=== PATIENT | female | born 1950 | race Caucasian/White ===

== ENCOUNTER → 2018-01-01 | Outpatient (CLI) | payer MEDICARE, OTHER ==
--- NOTE | 2018-01-03 09:53 | RADIOLOGY IMAGING REPORT ---
FACILITY: [facility] PATIENT NAME: EUFEMIA ORANTES : [id number] MR: [id number] V: [id number] EXAM DATE: [id number] ORDERING PHYSICIAN: DARRYL VELASCO TECHNOLOGIST: Cecille Harris PROCEDURE:BILATERAL DIGITAL SCREENING MAMMOGRAM WITH CAD ASSISTED INTERPRETATION AND 3D BREAST TOMOSYNTHESIS. COMPARISON:Prior mammograms dated 12/19/16, 09/09/15, 09/08/14 and 09/07/13. INDICATIONS:SCREENING. FINDINGS: Small to moderate amount of fibroglandular tissue is seen throughout the breasts. The parenchymal pattern has remained stable when allowing for difference in mammographic technique and patient positioning. There is no evidence of malignant appearing mass, malignant appearing calcification or other secondary sign of malignancy in either breast. DIAGNOSTIC CATEGORY 2--BENIGN FINDING. RECOMMENDATIONS: ROUTINE MAMMOGRAM AND CLINICAL EVALUATION. IMPRESSION: Bi-RADS 1: No significant abnormality is seen. Images were reviewed with R2CAD and 3D breast tomosynthesis. Dictated by: Liliana Payne M.D. on 01/01/2018 at 15:53 Transcribed by: POLLY on 01/02/2018 at 19:05 Approved by: Liliana Payne M.D. on 01/03/2018 at 9:52 [facility]
== END ==
LOC: MAMO 02:35
PROVIDERS: ATTEND Physician Assistant
DX: Z12.31 Encounter for screening mammogram for malignant neoplasm of breast (principal)
CPT/HCPCS: 77063; 77067

== ENCOUNTER → 2019-03-09 | Outpatient (CLI) | payer MEDICARE, OTHER ==
[~2019-03-09] MED LIST: ASPI-1471 PO; BIOT1TAB2 PO; ECHI80CA2 PO; MULT1TAB64 PO; MV-M1TAB38 PO; PNEU0.5D3 IM; TRIA15CR40 TP; VARI50KI IM
--- NOTE | 2019-03-09 17:14 | RADIOLOGY IMAGING REPORT ---
FACILITY: [facility] PATIENT NAME: Ann Saba : 1950 MR: [id number] V: [id number] EXAM DATE: ORDERING PHYSICIAN: HALEIGH DIAZ TECHNOLOGIST: Location: [facility] Patient: Ann Saba : 1950 Visit/Account:[id number] Date of Sevice: 03/09/2019 DEXA Scan Clinical history: Postmenopausal. Comparison: None available. LUMBAR SPINE: The bone mineral density (BMD) measured from L1-L4 correlates with a Z-score 0.9 and a T-score of -0. 6 which is Normal as defined by the World Health Organization. The corresponding risk of fracture in the lumbar spine is 1-2 times increased compared with a young adult reference population. HIP: Bone mineral density (BMD) measured in the Left total hip region correlates with a Z-score 0.8 and a T-score of by 0.5 which is Normal as defined by the World Health Organization. The corresponding ris k of fracture in the hip is 1-2 times increased compared with a young adult reference population. T score left femoral neck -1 Bone mineral density (BMD) measured in the Femoral Neck region measures 0.898 g/cm2. Impression: 1. Lumbar spine: Normal. 2. Left Hip: Normal. 3. Femoral Neck: Bone Mineral Density is 0.898 g/cm2 The next DEXA scan of this patient should include the following sites: L1-L4 and the left hip. FRAX? WHO Fracture Risk Assessment Tool link: <http://www.shef.ac.uk/FRAX/tool.jsp?locationValue=9> PLEASE NOTE: 1) The World Health Organization defines low BMD as follows: T-score Normal > -1 Osteopenia < -1 and > -2.5 Osteoporosis < -2.5 without fractures Established osteoporosis < -2.5 with fractures 2) In general, you may wish to consider: Diagnosis Treatment Follow-up DEXA Normal BMD Prevention 2-3 years Osteopenia Prevention/therapy 1-2 years Osteoporosis Therapy Yearly 3) Fracture risk estimated from the T-score is more accurate for vertebral fractures (often spontane ous) than for hip fractures. Report Dictated By: Liliana Payne MD at 03/09/2019 5:08 PM Report E-Signed By: Liliana Payne MD at 03/09/2019 5:09 PM MICHELEN:BETY
--- NOTE | 2019-03-10 14:20 | RADIOLOGY IMAGING REPORT ---
FACILITY: [facility] PATIENT NAME: EUFEMIA ORANTES : [id number] MR: [id number] V: [id number] EXAM DATE: [id number] ORDERING PHYSICIAN: HALEIGH DIAZ TECHNOLOGIST: Cecille Harris PROCEDURE:BILATERAL DIGITAL SCREENING MAMMOGRAM WITH CAD ASSISTED INTERPRETATION & 3D TOMOSYNTHESIS COMPARISON:Prior mammograms 01/01/18, 12/19/16, 09/09/15, 09/08/14, 09/07/13. INDICATIONS:screening FINDINGS: There are scattered areas of fibroglandular density throughout the breasts. The parenchymal pattern has remained stable allowing for difference in mammographic technique & patient positioning. DIAGNOSTIC CATEGORY 1--NEGATIVE. RECOMMENDATIONS: ROUTINE MAMMOGRAM AND CLINICAL EVALUATION. IMPRESSION: BIRADS 1: Negative. No significant abnormality is seen. Dictated by: Liliana Payne M.D. on 03/09/2019 at 15:49 Transcribed by: CAILIN on 03/10/2019 at 8:52 Approved by: Liliana Payne M.D. on 03/10/2019 at 14:18 [facility]
== END ==
LOC: MAMO 02-10 01:51
PROVIDERS: ATTEND Nurse Practitioner Family
DX: Z13.820 Encounter for screening for osteoporosis (principal); Z12.31 Encounter for screening mammogram for malignant neoplasm of breast; R94.6 Abnormal results of thyroid function studies; Z78.0 Asymptomatic menopausal state; Z80.3 Family history of malignant neoplasm of breast
CPT/HCPCS: 36415; 77063; 77067; 77080; 84439; 84443; 84480

== ENCOUNTER 2019-07-14 08:29 | Emergency (ER) | payer MEDICARE, OTHER ==
--- NOTE | 2019-07-14 08:30 | ER Report ---
History and Physical Time Seen By MD: 08:26 HPI/ROS CHIEF COMPLAINT: Dizziness, near syncope HISTORY OF PRESENT ILLNESS: Patient is a 69-year-old female here with complaints of dizziness, near syncope which started shortly prior to arrival while the patient was watching her grandson. Denies prior episodes of similar symptoms. Denies headache, blurry vision, chest pain, shortness breath or palpitations. Denies recent illness. Denies trauma. Patient is healthy at baseline. Patient presents with positional vertigo, she is afebrile, hemodynamically stable at time of evaluation. REVIEW OF SYSTEMS: Constitutional: No fever, no chills. Eyes: No discharge. ENT: No sore throat. Cardiovascular: No chest pain, no palpitations. Respiratory: No cough, no shortness of breath. Gastrointestinal: No abdominal pain, no vomiting. Genitourinary: No hematuria. Musculoskeletal: No back pain. Skin: No rashes. Neurological: No headache. + Dizziness Allergies: Coded Allergies: Penicillins (Unverified Allergy, Unknown, 07/14/19) sulfamethoxazole (Unverified Allergy, Unknown, 07/14/19) trimethoprim (Unverified Allergy, Unknown, 07/14/19) Home Meds Active Scripts Meclizine Hcl (MECLIZINE HCL) 25 Mg Tablet, 25 MG PO BID PRN for DIZZINESS, #20 TAB Prov:LYNDA THOMAS DO 07/14/19 Reported Medications Aspirin (ASPIR 81) 81 Mg Tablet.dr, 1 TAB PO QDAY, TAB 12/31/18 Discontinued Reported Medications Echinacea Purpurea Root (ECHINACEA) Unknown Strength Capsule, PO, CAPSULE 12/31/18 Multivitamin (MULTI VITAMIN DAILY) 1 Each Tablet, 1 TAB PO QDAY 12/31/18 Biotin/Keratin (Biotin Plus Keratin Tablet) 1 Each Tablet, 1 TAB PO QDAY 12/31/18 Mv-Mn/FA/Vit K/Lycop/Lut/Zeaxa (Ocuvite Eye + Multi Tablet) 1 Each Tablet, 1 TAB PO QDAY 12/31/18 Discontinued Scripts Varicella-Zoster Ge/As01b/Pf (Shingrix Vial Kit) 50 Mcg/0.5 Ml Kit, 0.5 ML IM ONCE, #1 EACH 1 Refill Prov:HALEIGH DIAZ APRN [employer] SERVICE PROFESSIONAL-[employer] 01/08/19 Triamcinolone Acetonide 0.1% Cr 15 Gm Tube (TRIAMCINOLONE ACETONIDE 0.1% CREAM) 15 Gm Cream..g., 1 NAMRATA TP BID for 30 Days, #30 TUBE 1 Refill Prov:HALEIGH DIAZ APRN [employer] SERVICE PROFESSIONAL-[employer] 01/08/19 Smoking Status: Never Smoker Constitutional Vital Sign - Last 24 Hours 07/14/19 08:33 Temp 98.3 Pulse 73 Resp 20 B/P (MAP) 157/102 O2 Delivery Room Air Physical Exam General Appearance: The patient is alert, has no immediate need for airway protection and no signs of toxicity. No acute distress Eyes: Pupils equal and round no pallor or injection. + Horizontal fatigable nystagmus ENT, Mouth: Mucous membranes are moist. Respiratory: There are no retractions, lungs are clear to auscultation. Cardiovascular: Regular rate and rhythm. [ ] Gastrointestinal: Abdomen is soft and non tender, no masses, bowel sounds normal. Neurological: No focal neurological deficits on examination Skin: Warm and dry, no rashes. Musculoskeletal: Neck is supple non tender. Extremities are nontender, nonswollen and have full range of motion. DIFFERENTIAL DIAGNOSIS: After history and physical exam differential diagnosis was considered for dizziness including but not limited to peripheral and central causes of vertigo, orthostatic causes including dehydration, and blood loss. Medical Decision Making Data Points Result Diagram: 07/14/19 0836 07/14/19 0836 Laboratory Hematology Test 07/14/19 08:36 White Blood Count 5.4 k/uL (4.5-11.0) Red Blood Count 4.67 M/uL (4.17-5.56) Hemoglobin 14.8 g/dL (12.0-16.0) Hematocrit 43.4 % (34.0-47.0) Mean Corpuscular Volume 92.9 fL (80.0-96.0) Mean Corpuscular Hemoglobin 31.6 pg (26.0-33.0) Mean Corpuscular Hemoglobin Concent 34.0 g/dL (32.0-36.0) Red Cell Distribution Width 12.6 % (11.5-14.5) Platelet Count 322 K/uL (150-450) Mean Platelet Volume 7.4 fL (7.2-11.1) Neutrophils (%) (Auto) 36.8 % (39.4-72.5) L Lymphocytes (%) (Auto) 42.7 % (17.6-49.6) Monocytes (%) (Auto) 13.4 % (4.1-12.4) H Eosinophils (%) (Auto) 5.6 % (0.4-6.7) Basophils (%) (Auto) 1.5 % (0.3-1.4) H Nucleated RBC Relative Count (auto) 0.0 /100WBC Neutrophils # (Auto) 2.0 K/uL (2.0-7.4) Lymphocytes # (Auto) 2.3 K/uL (1.3-3.6) Monocytes # (Auto) 0.7 K/uL (0.3-1.0) Eosinophils # (Auto) 0.3 K/uL (0.0-0.5) Basophils # (Auto) 0.1 K/uL (0.0-0.1) Nucleated RBC Absolute Count (auto) 0.00 K/uL Chemistry Test 07/14/19 08:36 Sodium Level 139 mmol/L (137-145) Potassium Level 3.4 mmol/L (3.5-5.0) Chloride Level 100 mmol/L (98-107) Carbon Dioxide Level 28 mmol/L (22-31) Blood Urea Nitrogen 20 mg/dl (7-18) Creatinine 0.80 mg/dl (0.52-1.04) Glomerular Filtration Rate Calc > 60.0 Random Glucose 99 mg/dl (75-110) Calcium Level 9.2 mg/dl (8.4-10.2) Total Bilirubin 0.6 mg/dl (0.2-1.3) Aspartate Amino Transf (AST/SGOT) 28 U/L (0-35) Alanine Aminotransferase (ALT/SGPT) 43 U/L (0-56) Alkaline Phosphatase 129 U/L (0-126) Total Protein 8.5 g/dl (6.3-8.2) Albumin 4.5 g/dl (3.5-5.0) Urinalysis Test 07/14/19 08:29 Urine Color Yellow Urine Clarity Clear Urine pH 6.0 pH (4.8-9.5) Urine Specific [place] 1.013 Urine Protein Negative mg/dL (NEGATIVE) Urine Glucose (UA) Negative mg/dL (NEGATIVE) Urine Ketones Negative mg/dL (NEGATIVE) Urine Blood Negative (NEGATIVE) Urine Nitrite Negative (NEGATIVE) Urine Bilirubin Negative (NEGATIVE) Urine Urobilinogen Negative mg/dL (0.2-1.9) Urine Leukocyte Esterase Negative (NEGATIVE) Urine RBC 1 /HPF (0-2/HPF) Urine WBC <1 /HPF (0-5/HPF) Urine Squamous Epithelial Cells None /LPF (</=FEW) Urine Bacteria Negative /HPF (NONE-FEW) Urine Mucus None /HPF (NONE-FEW) EKG/Imaging EKG Interpretation 12 lead EKG: Normal sinus rhythm, ventricular rate 63, QTC 440, no ischemic changes or arrhythmias present Rhythm: normal sinus rhythm [place]: normal QRS: normal ST segments: normal ED Course/Re-evaluation ED Course Patient is a previously healthy 69-year-old female here with complaints of suspected peripheral vertigo with a horizontal rate beating fatigable nystagmus. Since the patient denies prior history of similar symptoms, CT imaging of the head, basic labs, EKG were completed. Patient was given 1 L normal saline bolus, meclizine for symptom management. Labs were unremarkable, electrolytes are stable. EKG showed no ischemic findings or arrhythmias. CT imaging of the head showed no acute intracranial findings. Prescription provided for meclizine. Return precautions provided. Close PCP follow-up recommended. Decision to Disposition Date: Jul 14, 2019 Decision to Disposition Time: 09:37 Depart Departure Latest Vital Signs Vital Signs Date Time Temp Pulse Resp B/P (MAP) Pulse Ox O2 Delivery O2 Flow Rate FiO2 07/14/19 08:33 98.3 73 20 157/102 Room Air Impression: Primary Impression: Vertigo Condition: Improved Disposition: HOME OR SELF-CARE Referrals: HALEIGH DIAZ APRN [employer] SERVICE PROFESSIONAL-C (PCP) New Scripts Meclizine Hcl (MECLIZINE HCL) 25 Mg Tablet 25 MG PO BID PRN for DIZZINESS, #20 TAB Prov: LYNDA THOMAS DO 07/14/19 Patient Instructions: Vertigo (ED) Additional Instructions: Please drink plenty of water. You may take meclizine 1 tablet twice daily as needed for dizziness. Please return promptly if you develop headache, visual changes, motor weakness, numbness or tingling sensation. Please follow closely w ith her family provider in the next 3-5 days for repeat evaluation. LYNDA THOMAS DO Jul 14, 2019 08:30
[2019-07-14] MEDS ORDERED: NS(*) 0.9% 1000 ML BAG 1,000 ML IV ONE (08:43)
[2019-07-14] MEDS ORDERED: MECLIZINE HCL 25 MG TAB PO ONE (08:45)
[2019-07-14 08:51] LABS: PLATELET COUNT, AUTOMATED 322 K/uL (150-450)
--- NOTE | 2019-07-14 09:03 | EKG ---
FACILITY: [facility] [place] PATIENT NAME: EUFEMIA ORANTES : [id number] MR: [id number] V: [id number] EXAM DATE: ORDERING PHYSICIAN: LYNDA THOMAS TECHNOLOGIST: Test Reason : dizziness Blood Pressure : / mmHG Vent. Rate : 063 BPM Atrial Rate : 063 BPM P-R Int : 162 ms QRS Dur : 094 ms QT Int : 430 ms P-R-T Axes : 026 052 035 degrees QTc Int : 440 ms Normal sinus rhythm Normal ECG No previous ECGs available Confirmed by LARA ABAD ([id number]) on 07/14/2019 10:00:30 PM Referred By: Confirmed By:LARA ABAD
[2019-07-14] MEDS ORDERED: MECL25TA9 PO (09:21)
[2019-07-14 09:30] VITALS: BP 135/96
--- NOTE | 2019-07-14 09:37 | RADIOLOGY IMAGING REPORT ---
FACILITY: [facility] PATIENT NAME: Ann Saba : 1950 MR: [id number] V: [id number] EXAM DATE: ORDERING PHYSICIAN: LYNDA THOMAS TECHNOLOGIST: Location: [facility] Patient: Ann Saba : 1950 Visit/Account:[id number] Date of Sevice: 07/14/[address] scan without contrast HISTORY: Dizziness COMPARISONS: None TECHNIQUE: Non-contrast head CT was performed with sagittal and coronal reformations. One of the following dose optimization techniques was utilized in the performance of this exam: autom ated exposure control; adjustment of the mA and/or kV according to patient size; or use of iterative reconstruction technique. Specific details can be referenced in the facility's radiology CT exam ope rational policy. FINDINGS: There is no intracranial hemorrhage, hydrocephalus or midline shift. The basal cisterns, myles-white differentiation, and convexity sulci are maintained. Normal orbital soft tissues. Atherosclerotic vas cular calcifications noted. Minimal to mild patchy white matter hypoattenuation. The mastoid air cells are clear. The paranasal sinuses are clear. The osseous structures are normal . IMPRESSION: No acute intracranial abnormality. Minimal to mild chronic small vessel ischemic change. Report Dictated By: Rene Rivera MD at 07/14/2019 9:24 AM Report E-Signed By: Rene Rivera MD at 07/14/2019 9:27 AM [id number]
== END 2019-07-14 09:43 | disposition home or self-care (01) ==
LOC: ER 08:35
DX: R42 Dizziness and giddiness (principal)
CPT/HCPCS: 70450; 81001; 85025; 93005; 96360; 99284; J7030; J8597; 82040; 82247; 82310; 82374; 82435; 82565; 82947; 84075; 84132; 84155; 84295; 84450; 84460; 84520